=== PATIENT | male | born 1980 | race Caucasian/White ===

== ENCOUNTER 2021-02-21 09:20 | Emergency (ER) | payer OTHER, SELFPAY ==
[2021-02-21 09:24] VITALS: BP 155/100; PULSE 89; RESP 14; TEMP 37.2; O2SAT 100
--- NOTE | 2021-02-21 09:56 | ED.LOWEXIN ---
HPI - Extremity Injury (Lower) General Chief Complaint: Extremity Injury, Lower Stated Complaint: Pain in left Ankle and Leg Time Seen by Provider: 02/21/21 09:56 Source: patient Mode of arrival: ambulatory History of Present Illness HPI Narrative: left ankle pain no injury. paint to back of left ankle. patient feels he has pulled something in the back of his ankle. no swelling no edema no bruising no deformity noted. MD complaint: ankle injury Related Data Allergies Allergy/AdvReac Type Severity Reaction Status Date / Time No Known Allergies Allergy Unverified 11/11/18 10:43 Review of Systems Review of Systems: CONSTITUTIONAL: Denies fever, chills, or sweats. EYES: Denies visual changes, redness, or discharge. ENT: Denies rhinorrhea, congestion, sore throat, or otalgia. CARDIOVASCULAR: Denies chest pain, palpitations, or edema. RESPIRATORY: Denies cough or dyspnea. GASTROINTESTINAL: Denies abdominal pain, nausea, vomiting, or diarrhea. GENITOURINARY: Denies dysuria or hematuria. SKIN: Denies rash or itching. MUSCULOSKELETAL: Denies back pain, joint pain, or myalgia. NEUROLOGIC: Denies headache, numbness, or weakness. PSYCHIATRIC: Denies anxiety or depression. [facility] Past Medical History Medical History (Updated 02/21/21 @ 10:03 by KARTHIKEYAN Krause) HLD (hyperlipidemia) Lumbar spondylosis Family History Family History Mother Family history of gastrointestinal disorder Patient's mother is in good health Father , July 2020 Patient's father is in good health Social History Social History Social History: Patient drinks 1 cup of caffeine daily, energy drinks occasionally and exercises 5 days per week. 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 Gender identity (if verbalized by the patient): Male Comments At time of signature, agree with nursing past medical, surgical, social and family history. There is no relevant family history pertinent to the presenting complaint Exam Narrative: GENERAL: Well-appearing, well-nourished, and in no acute distress. HEAD: Normocephalic, atraumatic. EYES: PERRLA and EOMI. ENT: Nares clear, no rhinorrhea or epistaxis. Mucous membranes moist. NECK: Supple. CHEST: Clear to auscultation. No respiratory distress. HEART: Regular rate and rhythm. No murmur heard. Normal peripheral pulses. ABDOMEN: Soft, nontender, nondistended, normal active bowel sounds. EXTREMITIES: Normal range of motion. No edema.SKIN INTACT. NORMAL DP PULSE, NORMAL CAP REFILL. NORMAL SENSATION. Lower extremity: RIGHT HIP EXAM - SKIN INTACT. NO BRUISING, REDNESS OR SWELLING. NO INGUINAL MASSES OR LYMPHADENOPATHY. GENERALIZED FEMUR AND HIP TENDERNESS. PATIENT HOLDING HIP IN EXTERNAL ROTATION WITH SLIGHT FLEXION OF KNEE. NO BUTTOCK OR SI JOINT TENDERNESS. ROM LIMITED DUE TO PAIN. NORMAL FEMORAL PULSES. BACK EXAM - NO VERTEBRAL POINT SPECIFIC TENDERNESS OR STEP OFFS. NORMAL ROM OF BACK. NORMAL FLEXION AND EXTENSION OF BACK. NO CVA TENDERNESS. LEG EXAM - NO CALF OR ANKLE SWELLING, DISCOLORATION. NORMAL FOOT SENSATION AND CAP REFILL. NORMAL DP PULSE. . SKIN: Warm, dry, no rash. NEURO: No focal deficits. Alert and oriented x3. Talha Coma Scale Eye Opening: Spontaneous 4 Axson Coma Scale Motor: Obeys Commands 6 Axson Coma Scale Verbal: Oriented 5 Talha Coma Scale Total 15 Course Vital Signs Vital signs: Vital Signs Temperature 37.2 C 02/21/21 09:24 Pulse Rate 89 02/21/21 09:24 Respiratory Rate 14 02/21/21 09:24 Blood Pressure 155/100 H 02/21/21 09:24 Pulse Oximetry 10
== END 2021-02-21 10:07 | disposition home or self-care (01) ==
PROVIDERS: Emergency Provider Nurse Practitioner Family; PCP Emergency Medicine
DX: M76.62 Achilles tendinitis, left leg (principal); E78.5 Hyperlipidemia, unspecified; M47.816 Spondylosis without myelopathy or radiculopathy, lumbar region; Z87.891 Personal history of nicotine dependence
CPT/HCPCS: 99212; G0463

== ENCOUNTER 2021-04-23 09:10 | Emergency (ER) | payer OTHER, SELFPAY ==
--- NOTE | 2021-04-23 09:17 | ED.EAR ---
HPI - Ear Problem General Chief complaint: Ear Stated complaint: Ear Pain Time Seen by Provider: 04/23/21 09:10 Source: patient and RN notes reviewed History of Present Illness HPI Narrative: Patient is a 40-year-old male who presents the urgent care with complaints of bilateral ear pain. Patient states her right ear has been clogged for approximately 4 days and he has been using [id number] drops, Q-tips, water and some type of ear syringe press cleaner from [employer] . Patient denies of any upper respiratory complaints. Denies of fever, chills, nausea, vomiting. No other complaints. No acute distress noted. Patient aware of plan of care. Some parts of this dictation were generated by voice recognition software and may contain typographical and/or grammatical inaccuracies. Related Data Allergies Allergy/AdvReac Type Severity Reaction Status Date / Time No Known Allergies Allergy Verified 04/23/21 09:25 Review of Systems Review of Systems: CONSTITUTIONAL: Denies fever, chills, or sweats. EYES: Denies visual changes, redness, or discharge. ENT: Denies rhinorrhea, congestion, sore throat. Reports of bilateral otalgia and decreased hearing from the right CARDIOVASCULAR: Denies chest pain, palpitations, or edema. RESPIRATORY: Denies cough or dyspnea. GASTROINTESTINAL: Denies abdominal pain, nausea, vomiting, or diarrhea. GENITOURINARY: Denies dysuria or hematuria. SKIN: Denies rash or itching. MUSCULOSKELETAL: Denies back pain, joint pain, or myalgia. NEUROLOGIC: Denies headache, numbness, or weakness. All other systems reviewed are negative, except as documented in HPI. [facility] Past Medical History Medical History (Updated 04/23/21 @ 09:40 by KARTHIKEYAN Leyva) HLD (hyperlipidemia) Lumbar spondylosis Family History Family History Mother Family history of gastrointestinal disorder Patient's mother is in good health Father , July 2020 Patient's father is in good health Social History Social History Social History: Patient drinks 1 cup of caffeine daily, energy drinks occasionally and exercises 5 days per week. 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 Gender identity (if verbalized by the patient): Male Sexual Orientation (if Verbalized by the Patient): Straight or Heterosexual Comments At the time of my signature, I reviewed and agree with the nursing past medical, surgical, social, and family history. There is no relevant family history pertinent to the patient complaint. Exam Narrative: GENERAL: This is a well-nourished, well-developed patient, in no apparent distress. HEAD: normocephalic, atraumatic. EYES: PERRL. Sclera clear/white. Vision is grossly intact. EARS: External ears normal, left auditory canal clear and without drainage, mild edema and erythema noted to the right auditory canal with drainage, right TM injected/cloudy, unable to visualize left TM due to cerumen impaction. NOSE: External nose normal with no obvious nasal discharge, nares without redness, no rhinorrhea. THROAT: Mucous membranes moist NECK: Neck supple CARDIOVASCULAR: Regular rate and rhythm without murmurs, gallops, or rubs. RESPIRATORY: Clear to auscultation. Breath sounds equal bilaterally. No wheezes, rales, or rhonchi. SKIN: warm, intact with no suspicious lesions or rash, good texture and turgor. NEURO: awake, alert, and oriented to person, place and time. There were no obvious focal neurologic abnormalities. EXTREMITIES: No clubbing, cyanosis, or edema. Course Vital Signs Vital signs: Vital Signs Temperature
[2021-04-23 09:25] VITALS: BP 178/111; PULSE 92; RESP 16; TEMP 37.3; O2SAT 100
== END 2021-04-23 09:51 | disposition home or self-care (01) ==
PROVIDERS: Emergency Provider Nurse Practitioner Family; PCP Emergency Medicine
DX: H60.91 Unspecified otitis externa, right ear (principal); H66.91 Otitis media, unspecified, right ear; H61.22 Impacted cerumen, left ear; E78.5 Hyperlipidemia, unspecified; M47.816 Spondylosis without myelopathy or radiculopathy, lumbar region; Z87.891 Personal history of nicotine dependence
CPT/HCPCS: 69210; 99213; G0463

== ENCOUNTER 2022-11-02 08:27 | Emergency (ER) | payer OTHER, SELFPAY ==
[2022-11-02 08:31] VITALS: BP 172/96; PULSE 95; RESP 16; TEMP 36.8; O2SAT 99
--- NOTE | 2022-11-02 08:38 | ED.NECK ---
HPI - Neck Pain/Injury General Chief Complaint: Neck Pain/Injury Stated Complaint: neck pain Time Seen by Provider: 11/02/22 08:45 Source: patient and RN notes reviewed Mode of arrival: ambulatory Limitations: no limitations History of Present Illness HPI Narrative: 42-year-old male presents with concern for pain in between his neck and his shoulder on the right side. Reports pain started about 3 days ago gradually after he did some moving at his grandma's house. Reports he also lifts things at work. He denies any direct injury or trauma. He denies any weakness, numbness, tingling in his hands or fingers. Reports it hurts to rotate his neck to the right. He denies any midline cervical pain or tenderness. He reports he has been taking ibuprofen. Reports he has missed work MD complaint: neck pain Related Data Allergies Allergy/AdvReac Type Severity Reaction Status Date / Time No Known Allergies Allergy Verified 11/02/22 08:36 Review of Systems Review of Systems: CONSTITUTIONAL: Denies malaise, chills, sweats, or fever. CARDIOVASCULAR: Denies chest pain, palpitations, or edema. RESPIRATORY: Denies cough or dyspnea. SKIN: Denies rash or itching. MUSCULOSKELETAL: Reports right-sided pain between the neck and shoulder NEUROLOGIC: Denies numbness, weakness, or headache. All systems reviewed & are unremarkable except as noted in HPI and below PMFSH Past Medical History Medical History Chronic left-sided low back pain with left-sided sciatica Fatigue HLD (hyperlipidemia) Left buttock pain Lumbar back pain with radiculopathy affecting left lower extremity Lumbar spondylosis Numbness of left foot Other chronic pain Family History Family History Mother Family history of gastrointestinal disorder Patient's mother is in good health Father , July 2020 Patient's father is in good health Social History Social History Social History: Patient drinks 1 cup of caffeine daily, energy drinks occasionally and exercises 5 days per week. 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 Gender identity (if verbalized by the patient): Male Sexual Orientation (if Verbalized by the Patient): Straight or Heterosexual Comments At time of signature, agree with nursing past medical, surgical, social and family history. There is no relevant family history pertinent to the presenting complaint Exam Narrative: GENERAL: Well-appearing, well-nourished, and in no acute distress. HEAD: Normocephalic, atraumatic. EYES: PERRLA and EOMI. NECK: Supple. No lymphadenopathy. CHEST: Clear to auscultation. No respiratory distress. HEART: Regular rate and rhythm. Distal pulses palpable and equal, cap refill <3 seconds MUSCULOSKELETAL: Normal range of motion and strength in all extremities; 5/5 strength with hip flexion and extension, dorsiflexion and extension, knee flexion and extension, plantar flexion and extension, upper extremity flexion, extension, adduction, abduction. Normal sensation in dermatomal distributions with sensitivity to light touch and pain. No midline neck tenderness to palpation. No paraspinal tenderness. Transfers from sitting to standing. SKIN: Warm, dry, no rash. No ecchymosis, erythema, open wounds to back. NEURO: No focal deficits. Alert and oriented x3. Normal gait. PSYCH: Normal mood and affect Course Course Emergency Course: Patient is aware of diagnosis, understands and agrees to treatment plan.
== END 2022-11-02 08:57 | disposition home or self-care (01) ==
PROVIDERS: Emergency Provider Nurse Practitioner; PCP Emergency Medicine
DX: S46.811A Strain of other muscles, fascia and tendons at shoulder and upper arm level, right arm, initial encounter (principal); X58.XXXA Exposure to other specified factors, initial encounter; E78.5 Hyperlipidemia, unspecified; M47.816 Spondylosis without myelopathy or radiculopathy, lumbar region; Z87.891 Personal history of nicotine dependence
CPT/HCPCS: 99213; G0463

== ENCOUNTER 2023-10-17 10:21 | Emergency (ER) | payer OTHER, SELFPAY ==
[2023-10-17 10:28] VITALS: BP 159/98; PULSE 91; RESP 20; TEMP 37.6; O2SAT 100
--- NOTE | 2023-10-17 10:32 | ED.GENADULT ---
HPI - General Adult General Chief complaint: Back Pain/Injury Stated complaint: Back pain Source: patient, RN notes reviewed and old records reviewed Mode of arrival: ambulatory Limitations: no limitations History of Present Illness HPI narrative: 43-year-old male patient presents to [facility] with complaint of lower back pain. Patient states has chronic back pain had back surgery in the past. Patient states started a new job on Saturday and had to sit for 8 hours then had to stand for another 8 hours causing back to flare. Related Data Home Medications Medication Instructions Recorded Confirmed bupropion HCl 150 mg 24 hr tablet, 150 mg PO DAILY 10/17/23 10/17/23 extended release losartan 50 mg tablet 50 mg PO DAILY 10/17/23 10/17/23 Allergies Allergy/AdvReac Type Severity Reaction Status Date / Time No Known Allergies Allergy Verified 09/06/23 10:34 Review of Systems Constitutional: Constitutional: Reports no additional constitutional complaints, Denies body ache(s), Denies chills, Denies fatigue, Denies fever(s) and Denies headache(s) Eyes: Eyes: Reports no additional eye complaints and Denies blurry vision ENT: Reports system reviewed and no additional complaints, except as documented, Denies vertigo, Denies dizziness, Denies ear discharge, Denies otalgia, Denies facial pain, Denies headache(s), Denies nasal congestion, Denies nasal discharge, Denies sinus pain, Denies sinus pressure and Denies sore throat Cardiovascular: Cardiovascular: Reports no additional cardiovascular complaints, Denies chest pain, Denies chest pain at rest, Denies rapid heart rate and Denies dyspnea Respiratory: Respiratory: Reports no additional respiratory complaints, Denies chest congestion, Denies cough, Denies pain on inspiration, Denies pain with cough and Denies dyspnea Gastrointestinal: Gastrointestinal: Denies abdominal pain, Denies diarrhea, Denies nausea and Denies vomiting Musculoskeletal: Musculoskeletal: Reports back pain Integumentary/Breasts: Skin/Breast: Denies rash Neurologic: Reports system reviewed and no additional complaints, except as documented, Denies vertigo, Denies dizziness and Denies headache(s) Endocrine: Endocrine: Denies fatigue PMFSH Past Medical History Medical History Acute eczema Chronic left-sided low back pain with left-sided sciatica Dental abscess Eczema Fatigue HLD (hyperlipidemia) Left buttock pain Lumbar back pain with radiculopathy affecting left lower extremity Lumbar spondylosis Numbness of left foot Other chronic pain Status post administration of all doses of COVID-19 vaccine series Very high blood pressure determined by examination Surgical History Surgical History H/O lumbar discectomy Family History Family History Mother Family history of gastrointestinal disorder Patient's mother is in good health Father , July 2020 Patient's father is in good health Social History Social History (Updated 09/06/23 @ 10:22 by Shelby Santoro MA) Social History: Patient drinks 1 cup of caffeine daily, energy drinks occasionally and exercises 5 days per week. Smoking status: Former smoker Second hand tobacco smoke exposure: No Smoking end date: 07/08/15 Alcohol intake: never Substance use: never Substance use type: does not use Do You Feel Safe in your Home?: Yes Lack of Transportation: No Lack of Food: Never True Current Housing: I Have Housing Concerned About Future Housing: No Difficulty Paying Gas/Electric Bills: No Difficulty Paying for Meds: No Currently Unemployed: No Education: High School Diploma/GED Difficulty w/ Childcare or Family Care: No Living arrangements: alone Additional living arrangements comments: Patient is divor
== END 2023-10-17 10:50 | disposition home or self-care (01) ==
PROVIDERS: Emergency Provider Registered Nurse; PCP Emergency Medicine
DX: G89.29 Other chronic pain (principal); M54.41 Lumbago with sciatica, right side; E78.5 Hyperlipidemia, unspecified; I10 Essential (primary) hypertension; Z87.891 Personal history of nicotine dependence
CPT/HCPCS: 99213; G0463

== ENCOUNTER 2024-07-03 08:06 | Emergency (ER) | payer OTHER, SELFPAY ==
[2024-07-03 08:12] VITALS: BP 145/96; PULSE 77; RESP 16; TEMP 37.2; O2SAT 99
--- NOTE | 2024-07-03 08:17 | ED.NAVMDI ---
HPI - Nausea/Vomiting/Diarrhea General Chief complaint: Nausea/Vomiting/Diarrhea Stated complaint: Vomiting Time Seen by Provider: 07/03/24 08:17 Source: patient and RN notes reviewed Mode of arrival: ambulatory Limitations: no limitations History of Present Illness HPI Narrative: 43-year-old male presented for complaint of nausea and vomiting. Onset 2 days. Endorses about 5 episodes of vomiting yesterday and 2 this morning. States he last ate on 07/01. Denies any associated abdominal pain, diarrhea, hematemesis, fevers, body aches or sore throat. Not taking anything for symptoms. Denies known sick contacts. Related Data Allergies Allergy/AdvReac Type Severity Reaction Status Date / Time No Known Allergies Allergy Verified 07/03/24 08:23 Review of Systems Review of Systems: CONSTITUTIONAL: Denies body aches, fever, chills ENT: Denies rhinorrhea, congestion CARDIOVASCULAR: Denies chest pain, palpitations, or edema. RESPIRATORY: Denies cough or dyspnea. GASTROINTESTINAL: Endorses nausea, vomiting. Denies abdominal pain, diarrhea, hematochezia, melena, hematemesis GENITOURINARY: Denies dysuria, hematuria, or CVA tenderness. SKIN: Denies rash MUSCULOSKELETAL: Denies back pain, joint pain, or myalgia. NEUROLOGIC: Denies headache, numbness, tingling, or weakness. All systems reviewed & are unremarkable except as noted in HPI and below PMFSH Past Medical History Medical History Status post administration of all doses of COVID-19 vaccine series Eczema Chronic left-sided low back pain with left-sided sciatica Fatigue Left buttock pain Lumbar back pain with radiculopathy affecting left lower extremity Numbness of left foot Other chronic pain Dental abscess Very high blood pressure determined by examination Acute eczema Lumbar spondylosis HLD (hyperlipidemia) Surgical History Surgical History H/O lumbar discectomy Family History Family History Mother Family history of gastrointestinal disorder Patient's mother is in good health Father , July 2020 Patient's father is in good health Social History Social History (Reviewed 07/03/24 @ 08:25 by DMITRI Martin Social History: Patient drinks 1 cup of caffeine daily, energy drinks occasionally and exercises 5 days per week. Smoking status: Former smoker Second hand tobacco smoke exposure: No Smoking end date: 07/08/15 Alcohol intake: never Substance use: never Substance use type: does not use Do You Feel Safe in your Home?: Yes Lack of Transportation: No Lack of Food: Sometimes True Current Housing: I Have Housing Concerned About Future Housing: No Difficulty Paying Gas/Electric Bills: No Difficulty Paying for Meds: No Currently Unemployed: No Education: High School Diploma/GED Difficulty w/ Childcare or Family Care: No Living arrangements: alone Additional living arrangements comments: Patient is Occupation/Education: occupation 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 Gender identity (if verbalized by the patient): Male Sexual Orientation (if Verbalized by the Patient): Straight or Heterosexual Comments At time of signature, I have reviewed and agree with nursing past medical, surgical, social and family history unless otherwise noted. Please see nursing chart for further information. There is no relevant family history pertinent to the presenting complaint Exam Narrative: GENERAL: mildly ill-appearing, and in no acute distress. EYES: EOMI. Conjunctivae normal. ENT: Mucous membranes pink and moist. CHEST: No respiratory distress. Clear to auscultation. HEART: Regular rate and rhythm. No murmur appreciated. Normal peripheral pulses. ABDOMEN: abd soft, nondistended, normal active bowel sounds. Nontender abdomen, No guarding, rebound tenderness, asymmetry EXTREMITIES: Normal range of motion. No edema. SKIN: Warm, dry, no rash. Capillary refill normal. Normal skin turgor. NEURO: No focal deficits. Alert and oriented x3. PSYCH: Normal affect. Course Course Emergency Course: Patient is aware of diagnosis, understands and agrees to treatment plan. Anticipatory guidance given. Patient agrees to follow-up as directed and is aware of reasons to seek care at the emergency department. Portions of this record may have been created with voice recognition software Level of Care: Express Care Visit Vital Signs Vital signs: Vital Signs Temperature 98.9 F 07/03/24 08:12 Pulse Rate 77 07/03/24 08:12 Respiratory Rate 16 07/03/24 08:12 Blood Pressure 145/96 H 07/03/24 08:12 Pulse Oximetry 99 07/03/24 08:12 Oxygen Delivery Room Air 07/03/24 08:12 Temperature 98.9 F 07/03/24 08:12 Pulse Rate 77 07/03/24 08:12 Respiratory Rate 16 07/03/24 08:12 Blood Pressure 145/96 H 07/03/24 08:12 Pulse Oximetry 99 07/03/24 08:12 Oxygen Delivery Room Air 07/03/24 08:12 MDM - Nausea/Vomiting/Diarrhea MDM Narrative Medical decision making narrative: Discussed physical exam findings, neg flu and covid results. Advised supportive measures, Rx zofran, and signs/symptoms to go to the ER. Pt is appropriate for outpt treatment and f/u. Differential Diagnosis Differential diagnosis: Likely food poisoning, gastroenteritis, drug-induced nausea and vomiting and dehydration Discharge Plan Discharge Clinical Impression: Nausea & vomiting Patient Disposition: Home, Self-Care Condition: Stable Instructions: Antibiotic Form, Acute Nausea and Vomiting (ED) Additional Instructions: Stay hydrated. Take small sips of fluid containing electrolytes frequently. Clear liquids (broth, jello, tea, sprite, pedialyte) as tolerated Slowly advance to Oak foods (bananas, rice, applesauce, toast, crackers) Avoid fatty, greasy, fried or spicy foods. Limit dairy until symptoms are improved. You should go to the hospital if you experience persistent nausea and vomiting that does not resolve and does not allow you to tolerate any food or fluids, fevers, increasing abdominal pain, persistent diarrhea, or for any other concerns. Follow up with primary care provider in 3 days. Patient Language: Cameroonian Prescriptions: New ondansetron 4 mg tablet,disintegrating 4 mg PO Q8H PRN (Reason: nausea and vomiting) Qty: 10 0RF No Action losartan 50 mg tablet 50 mg PO DAILY Qty: 90 2RF cholecalciferol (vitamin D3) 1,250 mcg (50,000 unit) capsule 1,250 mcg PO WEEKLY Qty: 12 2RF bupropion HCl 150 mg tablet extended release 24 hr See Rx Instructions .ROUTE .COMPLEX Qty: 90 2RF Dose Instruction: TAKE 1 TABLET BY MOUTH DAILY Rx Instructions: TAKE 1 TABLET BY MOUTH DAILY alprazolam [Xanax] 1 mg tablet 1 mg PO BID PRN (Reason: anxiety) Qty: 60 1RF Follow-up/Referrals: Salinas Mari MD [Primary Care Provider] - Stand Alone Forms: Work/School Release IP Time of Disposition: 08:49
[2024-07-03 08:43] LABS: EDCOVIDSCREEN Negative (Negative); EDINFLUASCREEN Negative (Negative); EDINFLUBSCREEN Negative (Negative)
--- OUTSIDE RECORDS SUMMARY | 2024-07-10 15:35 | XMS_ITS | Encounter Summary ---
Author Organization [facility] Address [address] [place] [address] Care Team Providers Care Fur Drummer Name Role Phone Salinas Mari MD Primary Care Provider [phone] Reason for Visit * Reason Comments Establish Care Encounter Details Date Type Department Care Team (Latest Contact Info) Description 04/06/2019 9:15 AM CDT Office Visit [facility] Neurosurgery [address] [place] [address] Rui Desouza MD [address] [place] [id number] Lumbar radiculopathy (Primary Dx) Social History Tobacco Use Types Packs/Day Years Used Date Smoking Tobacco: Former Cigarettes Q uit: 2018 Smokeless Tobacco: Never Alcohol Use Standard Drinks/Week Comments No 0 (1 standard drink = 0.6 oz pur e alcohol) Sex and Gender Information Value Date Recorded Sex Assigned at Not on file Gender Identity Not on file Sexual Orientation Not on file documented as of this encounter Last Filed Vital Signs Vital Sign Reading Time Taken Comments Blood Pressure 145/105 04/06/2019 9:28 AM CDT Pulse 89 04/06/2019 9:28 AM CDT Temperature 37 ??C (98.6 ??F) 04/06/2019 9:28 AM CDT Respiratory Rate 20 04/06/2019 9:28 AM CDT Oxygen Saturation 98% 04/06/2019 9:28 AM CDT Inhaled Oxygen Concentration - - Weight 110.7 kg (244 lb) 04/06/2019 9:28 AM CDT Height 182.9 cm (6') 04/06/2019 9:28 AM CDT Body Mass Index 33.09 04/06/2019 9:28 AM CDT documented in this encounter Patient Instructions * Patient Instructions* Subha Corcoran APRN-CNP - 04/06/2019 9:33 AM CDT Wound care - you may shower, no scrubbing or soaking - pat dry Increase activity as tolerated - no bending, twisting, or lifting anything greater than 10 pounds Follow up in 4 weeks no imaging documented in this encounter Progress Notes * Rui Desouza MD - 04/06/2019 8:54 PM CDT NAME: SHANE MCKEON : 1980 AGE: 38 PROVIDER: Rui Desouza MD SEX: M DATE: 04/06/2019 I had the pleasure of seeing Mr. Mckeon in the neurosurgery office today. HISTORY OF PRESENT ILLNESS: Mr. Mckeon is a very pleasant 38-year-old gentleman who has history of left leg pain radiating to the left S1 dermatome that was going on for approximately 8 months. He had an MRI that demonstrated a left L5-S1 disk protrusion with significant compression upon left S1 nerve root at the lateral recess. Therefore, the patient was ultimately submitted to a left L5-S1 microdiscectomy by me on 03/19/2019. The patient presented significant improvement of the left leg pain after the surgical procedure. He still reports some mild residual pain in the posterior portion ofhis thigh and calf, which is only intermittent in nature. No concerns with the wound. Past Medical History: Diagnosis Date ??? Anxiety ??? Difficult intubation 03/19/2019 Anterior airway and short TM distance, easy with Glidescope 4 ??? Lumbar pain Past Surgical History: Procedure Laterality Date ??? Hernia Repair ??? Lumbar Diskectomy Left 03/19/2019 Left; LUMBAR FIVE TO SACRAL ONE MICRODISCECTOMY No family history on file. Social History Socioeconomic History ??? Marital status: Spouse name: Not on file ??? Number of children: Not on file ??? Years of education: Not on file ??? Highest education level: Not on file Occupational History ??? Not on file Social Needs ??? Financial resource strain: Not on file ??? Food insecurity: Worry: Not on file Inability: Not on file ??? Transportation needs: Medical: Not on file Non-medical: Not on file Tobacco Use ??? Smoking status: Former Smoker Last attempt to quit: 2018 Years since quittin.7 ??? Smokeless tobacco: Never Used Substance and Sexual Activity ??? Alcohol use: No ??? Drug use: No ??? Sexual activity: Not on file Lifestyle ??? Physical activity: Days per week: Not on file Minutes per session: Not on file ??? Stress: Not on file Relationships ??? Social connections: Talks on phone: Not on file Gets together: Not on file Attends mu-ism service: Not on file Active member of club or organization: Not on file Attends meetings of clubs or organizations: Not on file Relationship status: Not on file ??? Intimate partner violence: Fear of current or ex partner: Not on file Emotionally abused: Not on file Physically abused: Not on file Forced sexual activity: Not on file Other Topics Concern ??? Not on file Social History Narrative ??? Not on file Current Medications ALPRAZolam (XANAX) 0.5 MG tablet Take 0.5 mg by mouth 3 times daily as needed escitalopram (LEXAPRO) 10 MG tablet PHYSICAL EXAMINATION: The patient is comfortable and in no acute distress. The wound in the posterior lumbar region is well healed. No phlogistic signs or any signs of infection. He has full strengthin the lower limbs for all tested muscles. Reflexes are physiologic and symmetric at 1+ in the lower limbs. Negative straight leg raise test bilaterally. Sensation is normal in the lower limbs. Strength, sensation and reflexes are normal in the upper limbs. MEDICAL DECISION MAKING: I told the patient that he is experiencing a good evolution approximately 2 weeks after his left L5-S1 microdiskectomy. I recommended him to start physical therapy. As, according to the patient, his work involves a significant amount of physical exertion, I still recommend him to be out of work until the next evaluation in 4 weeks. I still recommended him to avoid submerging the incision. Thanks for allowing us to participate in care of your patient. [id number] Doc ID: [id number] Voice Job ID: [id number] documented in this encounter Plan of Treatment Not on file documented as of this encounter Visit Diagnoses Diagnosis Lumbar radiculopathy- Primary Thoracic or lumbosacral neuritis or radiculitis, unspecified documented in this encounter Care Teams Fur Drummer Relationship Specialty Start Date End Date Salinas Mari MD [facility] [place] [id number] PCP - General Internal Medicine 03/02/19 documented as of this encounter
--- OUTSIDE RECORDS SUMMARY | 2024-07-10 15:35 | XMS_ITS | Encounter Summary ---
Author Organization [facility] Address [address] [facility] [place] [address] Care Team Providers Care Desizing Machine Operator Name Role Phone Salinas Mari MD Primary Care Provider [phone] Encounter Details Date Type Department Care Team (Latest Contact Info) Description 03/02/2019 10:00 AM CDT - 03/02/2019 11:59 PM T Hospital [facility] [address] [place] [address] Rui Dseouza MD [address] [place] [address] [place] [address] Discharge Disposition: Home or Self Care Social History Tobacco Use Types Packs/Day Years Used Date Smoking Tobacco: Former Cigarettes Q uit: 2018 Smokeless Tobacco: Never Alcohol Use Standard Drinks/Week Comments No 0 (1 standard drink = 0.6 oz pur e alcohol) Sex and Gender Information Value Date Recorded Sex Assigned at Not on file Gender Identity Not on file Sexual Orientation Not on file documented as of this encounter Medications at Time of Discharge Medication Sig Dispensed Refills Start Date End Date ALPRAZolam (XANAX) 0.5 MG tablet Take 0.5 mg by mouth 3 times daily as needed 01/28/2019 HYDROcodone-acetaminophe n (NORCO) 5-325 MG tablet Take 1 tablet by mouth every 8 hours as needed for Pain 15 tablet 03/19/2019 03/24/2019 HYDROcodone-acetaminophe n (NORCO) 5-325 MG tablet Take 1 tablet by mouth every 8 hours as needed for Pain 03/19/2019 methocarbamol (ROBAXIN) 500 MG tablet Take 1 tablet by mouth every 6 hours as needed for Muscle Spasms 28 tablet 03/19/2019 03/26/2019 methocarbamol (ROBAXIN) 500 MG tablet Take 500 mg by mouth every 8 hours as needed for Muscle Spasms 03/12/2019 03/19/2019 documented as of this encounter Plan of Treatment Not on file documented as of this encounter Procedures Procedure Name Priority Date/Time Associated Diagnosis Comments PT PTT PANEL Pre-Op 03/02/2019 10:28 AM CDT Pre-op testing CBC W AUTO DIFFERENTIAL STAT 03/02/2019 10:28 AM CDT Pre-op testing documented in this encounter Results * PT PTT PANEL (03/02/2019 10:28 AM CDT) PT 9.5 9.5 - 11.6 sec 03/02/2019 11:21 AM CDT [facility] INR 0.9 0.9 - 1.1 03/02/2019 11:21 AM CDT [facility] PTT 24.8 21.0 - 32.0 sec 03/02/2019 11:21 AM CDT [facility] Blood BLOOD SPECIMEN / Unknown Venipuncture / Unknown 03/02/2019 10:28 AM CDT 03/02/2019 10:54 AM CDT Narrative [facility] - 03/02/2019 11:21 AM CDT Conventional Warfarin Anticoagulant Therapy: INR Reference Range: ??2.0-3.0 Intensive Warfarin Anticoagulant Therapy: INR Reference Range: ? 2.5-3.5 Heparin Therapeutic Range for PTT: 50.5 - 74.3 seconds. Rui Desouza MD LAB - COAGULATIO N ORDERABLES [facility] [address] [place] [address] * (ABNORMAL) CBC W AUTO DIFFERENTIAL (03/02/2019 10:28 AM CDT) WBC 7.6 4.4 - 10.7 x10E9/L 03/02/2019 11:12 AM [facility] WBC Corrected 03/02/2019 11:12 AM [facility] RBC 4.60 3.80 - 5.40 x10E12/L 03/02/2019 11:12 AM [facility] Hemoglobin 13.7 12.0 - 17.6 gm/dL 03/02/2019 11:12 AM [facility] Hematocrit 43.4 35.2 - 51.7 % 03/02/2019 11:12 AM [facility] MCV 94.3 80.7 - 98.3 fl 03/02/2019 11:12 AM [facility] MCH 29.8 26.7 - 34.0 pg 03/02/2019 11:12 AM [facility] MCHC 31.6 30.8 - 35.9 gm/dL 03/02/2019 11:12 AM [facility] Platelet Count 178 153 - 416 x10E9/L 03/02/2019 11:12 AM [facility] RDW-CV 11.9(L) 12.1 - 14.9 % 03/02/2019 11:12 AM [facility] MPV 11.0 9.4 - 12.9 fl 03/02/2019 11:12 AM [facility] Neutrophils % 56.8 44.0 - 73.0 % 03/02/2019 11:12 AM [facility] Lymphocytes % 34.1 20.0 - 43.0 % 03/02/2019 11:12 AM [facility] Monocytes % 7.4 5.0 - 13.0 % 03/02/2019 11:12 AM [facility] Eosinophils % 1.2 0.0 - 6.0 % 03/02/2019 11:12 AM [facility] Basophils % 0.4 0.0 - 2.0 % 03/02/2019 11:12 AM [facility] Immature Granulocytes 0.1 0 - 1 % 03/02/2019 11:12 AM [facility] Neutrophil Absolute 4.30 2.01 - 7.14 x10E9/L 03/02/2019 11:12 AM [facility] Lymphocytes Absolute 2.58 1.07 - 3.94 x10E9/L 03/02/2019 11:12 AM CDT [facility] Monocytes Absolute 0.56 0.26 - 1.07 x10E9/L 03/02/2019 11:12 AM CDT [facility] Eosinophils Absolute 0.09 0 - 0.47 x10E9/L 03/02/2019 11:12 AM CDT [facility] Basophils Absolute 0.03 0 - 0.08 x10E9/L 03/02/2019 11:12 AM CDT [facility] Immature Granulocytes Absolute 0.01 0.00 - 0.06 x10E9/L 03/02/2019 11:12 AM CDT [facility] nRBC Auto 0 /100 WBC 03/02/2019 11:12 AM CDT [facility] Blood BLOOD SPECIMEN / Unknown Venipuncture / Unknown 03/02/2019 10:28 AM CDT 03/02/2019 10:54 AM CDT Rui Desouza MD LAB - HEMATOLOGY ORDERABLES Performing Organization Address [facility] Co de Phone Number [facility] [address] [place] [address] documented in this encounter Visit Diagnoses Diagnosis Pre-op testing- Primary Preoperative examination, unspecified documented in this encounter Care Teams Desizing Machine Operator Relationship Specialty Start Date End Date Salinas Mari MD [address] [address] PCP - General Internal Medicine 03/02/19 documented as of this encounter
--- OUTSIDE RECORDS SUMMARY | 2024-07-10 15:35 | XMS_ITS | Encounter Summary ---
Author Organization [facility] Address [address] [facility] [place] [address] Care Team Providers Care Cylinder Head Assembler Name Role Phone Salinas Mari MD Primary Care Provider [phone] Encounter Details Date Type Department Care Team (Late st Contact Info) Description 07/15/2019 Orders Only [facility] [address] [place] [address] Arianne Salas RN Lumbar radiculopathy ; Status post lumbar spine surgery for decompression of spinal cord; Back pain, unspecified back location, unspecified back pain laterality, unspecified chronicity Social History Tobacco Use Types Packs/Day Years Used Date Smoking Tobacco: Former Cigarettes Q uit: 2018 Smokeless Tobacco: Never Alcohol Use Standard Drinks/Week Comments No 0 (1 standard drink = 0.6 oz pur e alcohol) Sex and Gender Information Value Date Recorded Sex Assigned at Not on file Gender Identity Not on file Sexual Orientation Not on file documented as of this encounter Plan of Treatment Not on file documented as of this encounter Visit Diagnoses Diagnosis Lumbar radiculopathy- Primary Thoracic or lumbosacral neuritis or radiculitis, unspecified Status post lumbar spine surgery for decompression of spinal cord Back pain, unspecified back location, unspecified back pain laterality, unspecified chronicity documented in this encounter Care Teams Cylinder Head Assembler Relationship Specialty Start Date End Date Salinas Mari MD [address] [place] [address] PCP - General Internal Medicine 03/02/19 documented as of this encounter
--- OUTSIDE RECORDS SUMMARY | 2024-07-10 15:35 | XMS_ITS | Encounter Summary ---
Author Organization [facility] Address [address] [facility] [place] [address] Care Team Providers Care Manager Business Continuity Name Role Phone Unavailable Primary Care Provider Unavailabl e Encounter Details Date Type Department Care Team (Late st Contact Info) Description 01/19/2019 Orders Only [facility] [address] [place] [address] Rui Desouza MD [address] [place] [address] Back pain, unspecified back location, unspecified back pain laterality, unspecified chronicity Social History Tobacco Use Types Packs/Day Years Used Date Smoking Tobacco: Never Assessed Sex and Gender Information Value Date Recorded Sex Assigned at Not on file Gender Identity Not on file Sexual Orientation Not on file documented as of this encounter Plan of Treatment Not on file documented as of this encounter Visit Diagnoses Diagnosis Back pain, unspecified back location, unspecified back pain laterality, unspecified chronicity- Primary documented in this encounter
--- OUTSIDE RECORDS SUMMARY | 2024-07-10 15:35 | XMS_ITS | Referral Summary ---
Author Organization [facility] Address [address] [facility] [place] [address] Care Team Providers Care Cad Technician Name Role Phone Salinas Mari MD Primary Care Provider [phone] Source Comments [facility],non-owned Affiliates and Associated Physician Practices is amultiple site organization consisting of ambulatory clinics and hospital sitesin [place], [place], [place] and [place]. This disclosure is being madepursuant to the Care Everywhere program and may not contain all information available regarding this patient. Last updated 18.[facility] Allergies No known active allergies Medications * Be aware that medications may not be up to date on this document. Alwaysverify current medications with the patient. Medication Sig Dispensed Refills Start Date End Date Status ALPRAZolam (XANAX) 0.5 MG tablet Take 0.5 mg by mouth 3 times daily as needed 01/28/2019 Active escitalopram (LEXAPRO) 10 MG tablet 03/03/2019 Active Active Problems Problem Noted Date Diagnosed Date Acute lumbar radiculopathy Social History Tobacco Use Types Packs/Day Years Used Date Smoking Tobacco: Former Cigarettes Q uit: 2018 Smokeless Tobacco: Never Alcohol Use Standard Drinks/Week Comments No 0 (1 standard drink = 0.6 oz pur e alcohol) Sex and Gender Information Value Date Recorded Sex Assigned at Not on file Gender Identity Not on file Sexual Orientation Not on file Last Filed Vital Signs Vital Sign Reading Time Taken Comments Blood Pressure 146/103 08/10/2019 9:53 AM FREELANCE ART DIRECTOR Pulse 100 08/10/2019 9:53 AM FREELANCE ART DIRECTOR Temperature 37 ??C (98.6 ??F) 08/10/2019 9:53 AM FREELANCE ART DIRECTOR Respiratory Rate 20 04/06/2019 9:28 AM CDT Oxygen Saturation 96% 08/10/2019 9:53 AM FREELANCE ART DIRECTOR Inhaled Oxygen Concentration - - Weight 106.6 kg (235 lb) 08/10/2019 9:53 AM FREELANCE ART DIRECTOR Height 182.9 cm (6') 08/10/2019 9:53 AM FREELANCE ART DIRECTOR Body Mass Index 31.87 08/10/2019 9:53 AM FREELANCE ART DIRECTOR Plan of Treatment Not on file Care Teams Cad Technician Relationship Specialty Start Date End Date Salinas Mari MD [address] [place] [address] [address] [place], [place] [phone] PCP - General Internal Medicine 03/02/19
--- OUTSIDE RECORDS SUMMARY | 2024-07-10 15:35 | XMS_ITS | Encounter Summary ---
Author Organization [facility] Address [address] [facility] [address] Care Team Providers Care Apartment House Manager Name Role Phone Salinas Mari MD Primary Care Provider [phone] Reason for Visit * Reason Comments Follow-up Post microdiskectomy Encounter Details Date Type Department Care Team (Latest Contact Info) Description 08/10/2019 9:45 AM AOC PLANS INTELLIGENCE OFFICER Office Visit [facility] Neurosurgery [address] [place] [address], [address] [place] [address] Rui Desouza MD [address] [place] [address] [place] [address] Lumbar radiculopathy (Primary Dx) Social History Tobacco [...] Comments Blood Pressure 146/103 08/10/2019 9:53 AM AOC PLANS INTELLIGENCE OFFICER Pulse 100 08/10/2019 9:53 AM AOC PLANS INTELLIGENCE OFFICER Temperature 37 ??C (98.6 ??F) 08/10/2019 9:53 AM AOC PLANS INTELLIGENCE OFFICER Respiratory Rate - - Oxygen Saturation 96% 08/10/2019 9:53 AM AOC PLANS INTELLIGENCE OFFICER Inhaled Oxygen Concentration - - Weight 106.6 kg (235 lb) 08/10/2019 9:53 AM AOC PLANS INTELLIGENCE OFFICER Height 182.9 cm (6') 08/10/2019 9:53 AM AOC PLANS INTELLIGENCE OFFICER Body Mass Index 31.87 08/10/2019 9:53 AM AOC PLANS INTELLIGENCE OFFICER documented in this encounter Progress Notes * Rui Desouza MD - 08/10/2019 2:19 PM CST NAME: SHANE MCKEON : 1980 AGE: 39 PROVIDER: Rui Desouza MD SEX: M DATE: 08/10/2019 I had the pleasure of Mr. Mckeon in the neurosurgery office today. HISTORY OF PRESENT ILLNESS: Mr. Mckeon is a very pleasant 39-year-old gentleman with past historyof left S1 radiculopathy. He had an MRI that demonstrated left L5-S1 disk protrusion with significant compression upon the left S1 nerve root at the lateral recess. Therefore, the patient was ultimately submitted to a left L5-S1 microdiscectomy by me on 03/19/2019. The patient experienced complete resolution of the left leg pain. He reports no major back pain. He has already finished physical therapy, and he is back to his normal level of physical activities. Past Medical History: Diagnosis Date ??? Anxiety [...] Last attempt to quit: 2018 Years since quittin.0 ??? Smokeless tobacco: Never Used Substance and Sexual Activity ??? Alcohol use: No ??? Drug use: No ??? Sexual activity: Not on file Lifestyle ??? Physical activity: Days per week: Not on file Minutes per session: Not on file ??? Stress: Not on file Relationships ??? Social connections: Talks on phone: Not on file Gets together: Not on file Attends judaism service: Not on file Active member of [...] No phlogistic signs or any signs of infection on palpation of his lower lumbar region. Strength, sensation and reflexes are normal in the upper and lower limbs. MEDICAL DECISION MAKING: I told the patient he is experiencing a very good evolution approximately 5 months after the surgical intervention to his lumbar spine. I told him that as he is completely asymptomatic, there is no further need of neurosurgical follow-up unless the patient presents with newsymptoms. Thank you for allowing us to participate in care of your patient. The patient is very satisfied with his treatment. [email or web address] Doc ID: [id number] Voice Job ID: [id number] cc: , PCP PLANS INTELLIGENCE OFFICER documented in this encounter Plan of Treatment Not on file documented as of this encounter Visit Diagnoses Diagnosis Lumbar radiculopathy- Primary Thoracic or lumbosacral neuritis or radiculitis, unspecified documented in this encounter Care Teams Apartment House Manager Relationship Specialty Start Date End Date Salinas Mari MD [address] [place] [address] PCP - General Internal Medicine 03/02/19 documented as of this encounter
--- OUTSIDE RECORDS SUMMARY | 2024-07-10 15:35 | XMS_ITS | Encounter Summary ---
Author Organization [facility] Address [address] [facility] [place] [address] Care Team Providers Care Middleware Solutions Architect Name Role Phone Unavailable Primary Care Provider Unavailabl e Encounter Details Date Type Department Care Team (Late st Contact Info) Description 02/12/2019 Orders Only [facility] [address] [place] [address] Subha Corcoran, CASTING AND PASTING SUPERVISOR-SAMPLE TESTER [address] [place] [address] Lumbar radiculopathy Social History Tobacco Use Types Packs/Day [...]
--- OUTSIDE RECORDS SUMMARY | 2024-07-10 15:35 | XMS_ITS | Encounter Summary ---
Author Organization [facility] Address [address] [facility] [place] [address] Care Team Providers Care Wine Cellar Worker Name Role Phone Unavailable Primary Care Provider Unavailabl e Reason for Visit * Reason Onset Date Comments Reminder Call 02/06/2019 clld to confiem appr NA left detailled msg Encounter Details Date Type Department Care Team (Late st Contact Info) Description 02/06/2019 Telephone [facility] [address] [place] [address] Rui Desouza MD [address] [place] [address] Reminder Call (clld to confiem appr NA left detailled msg ) Social History Tobacco Use Types Packs/Day Years Used Date Smoking Tobacco: Never Assessed Sex and Gender Information Value Date Recorded Sex Assigned at Not on file Gender Identity Not on file Sexual Orientation Not on file documented as of this encounter Miscellaneous Notes * Telephone Encounter - Gia Prado - 02/06/2019 10:16 AM CDT clld to confiem appr NA left detailled msg documented in this encounter Plan of Treatment Not on file documented as of this encounter Visit Diagnoses Not on filedocumented in this encounter
--- OUTSIDE RECORDS SUMMARY | 2024-07-10 15:35 | XMS_ITS | Encounter Summary ---
Author Organization [facility] Address [address] [place] [address]. [place], [place] [address] [place] [address] Care Team Providers Care Industrial Gas Fitter Name Role Phone Unavailable Primary Care Provider Unavailabl e Encounter Details Date Type Department Care Team (Late st Contact Info) Description 03/15/2006 Abstract [facility] [place], [place] [id number] Zan Rodriguez MD [address] [address] Social History Tobacco Use Types Packs/Day Years Used Date Smoking Tobacco: Never Assessed Sex and Gender Information Value Date Recorded Sex Assigned at Not on file Legal Sex Male 4:44 PM CDT Gender Identity Not on file Sexual Orientation Not on file documented as of this encounter Plan of Treatment Not on file documented as of this encounter Visit Diagnoses Not on filedocumented in this encounter
--- OUTSIDE RECORDS SUMMARY | 2024-07-10 15:35 | XMS_ITS | Encounter Summary ---
Author Organization [facility] Address [address] [place] [address] Care Team Providers Care Quarryman Name Role Phone Salinas Mari MD Primary Care Provider + [phone] Reason for Visit * Auth/Cert Specialty Diagnoses / Procedures Referred By Sheryl t Referred To Contact Diagnoses Diagnosis unknown Diagnosis unknown [R69] Procedures DISCECTOMY LUMBAR MICROSCOPIC Referral ID Status Reason Start Date Expiration Date Visits Re quested Visits Authorized [id number] 1 1 Encounter Details Date Type Department Care Team (Late st Contact Info) Description 03/19/2019 10:02 AM CDT Anesthesia Event [facility] [address] [place] [address] Salinas Khanna MD [address] [place] [address] Wilman Figueroa, BURRER MACHINE-FEED PREPARATION OPERATOR [address] [place] [id number] Anesthesia Record Procedure Summary Procedure Name Responsible Anesthesiologist Anesthesia Start Time Anesthesia Stop Time LUMBAR FIVE TO SACRAL ONE MICRODISCECTOMY (Left: Spine Lumbar) Salinas Khanna MD 03/19/19 1002 03/19/19 1153 Events Date Time Event Comment 03/19/2019 1002 An Start 1002 An Start Data 1004 PT Reassessment 1006 Induction 1014 An Intubation 1039 Timeout Anesthesia part icipated in timeout at the time documented in the record by nursing. 1040 Incision 1146 Extubation 1149 an stop data 1149 Electnc Sig 1149 ANPTO2 1153 An Stop Meds Name Total midazolam 2 mg/2mL injection 2 mg fentaNYL 250 mcg/5mL injection 250 mcg lidocaine 2% injection (20 mg/ml) 100 mg propofol 200mg/20mL injection 270 mg rocuronium 50mg/5mL injection 85 mg Phenylephrine HCl 10 MG/ML 300 mcg dexamethasone 4 mg/ml injection 8 mg ondansetron 4 mg/2mL injection 4 mg ketorolac 30 mg/ml injection 30 mg sugammadex 200 mg/2 mL injection 200 mg ceFAZolin (ANCEF) 2,000 mg in 50 ml IVPB 2 g HYDROmorphone 2 mg/ml injection 0.5 mg lactated ringers infusion 1,200 mL * Agents Name Insp. N2O Exp. Sevoflurane Exp. N2O O2 Flow - Auxiliary O2 Air Insp. Sevoflurane * Blood No blood administrations on file. Lines, Drains, and Airways Type Details Placement Removal Peripheral IV Date: 03/19/19; Time : 0854; Orientation: Left; Placed By: Ministerio Morel RN; Tolerance: Well 03/19/19 0854 by Micheline Niño RN 03/19/19 1417 by Rozina Kohli RN ETT Date: 03/19/19; Time : 1007; Placed By: DANII Bradley; Vent: easy mask; Induction: Standard IV; Blade Type: Video; Blade Size: 4; Laryngoscopy View: Grade 1 (full cords); Intubation Adjuncts: Stylet, Video Laryngoscope, Cricoid Pressure; Tube: Endotracheal Tube; Placement: Oral; Tube Type: Cuffed-inflated; Tube Size(mm): 8 MM; Depth of Insertion: 23 CM; Measured From: teeth; Attempts: 2; Cuff Infated: Air; Cuff Vol(mL): 7 mL; Verified By: Direct visualization, Bilateral breath sounds, Chest Auscultation, CO2 Monitor; Reason: anterior larynx, other (comments) 03/19/19 1007 by Wilman Figueroa APRN-CRNA 03/19/19 1147 by Wilman Figueroa APRN-CRNA Procedural Site (Incision) 03/19/19; 1041; Lower, Medial; Back; 03/19/19; 2019 03/19/19 1041 by Mono Acevedo RN 03/19/19 2019 by Antione Auto Release documented in this encounter Social History Tobacco Use Types Packs/Day Years Used Date Smoking Tobacco: Former Cigarettes Q uit: 2018 Smokeless Tobacco: Never Alcohol Use Standard Drinks/Week Comments No 0 (1 standard drink = 0.6 oz pur e alcohol) Sex and Gender Information Value Date Recorded Sex Assigned at Not on file Gender Identity Not on file Sexual Orientation Not on file documented as of this encounter Progress Notes * Salinas Khanna MD - 03/19/2019 12:04 PM CDT ANESTHESIA POSTOP EVALUATION NOTE Procedure: LUMBAR FIVE TO SACRAL ONE MICRODISCECTOMY (Left Spine Lumbar) Shane Hazel is a 38 year old male Patient Vitals for the past 6 hrs: BP Temp Pulse Resp SpO2 Pain Rating Score #1 03/19/19 0849 -- 98.7 ??F (37.1 ??C) 106 20 99 % 0 03/19/19 0902 (!) 151/104 -- -- -- -- -- 03/19/19 1151 -- 97 ??F (36.1 ??C) -- -- -- 0 03/19/19 1155 -- -- -- -- -- 0 Anesthesia Type: general Pre-op Diagnosis Codes: * Diagnosis unknown [R69] Mental Status: awake and sufficiently recovered from acute administration of anesthesia to participate in the evaluation Neuro Status: No numbess, tingling or visual disturbances Respiratory Function: natural Cardiac Function: stable Postop Pain: acceptable to the patient Postop Hydration: adequate Postop Nausea: none Assessment: no apparent anesthetic complications Patient Disposition: Release from Anesthesia Care Non Reportable Improvement Section (otherwise blank): * Salinas Khanna MD - 03/19/2019 9:19 AM CDT ANESTHESIA PREOPERATIVE EVALUATION NOTE Procedure: LUMBAR FIVE TO SACRAL ONE MICRODISCECTOMY (Left Spine Lumbar) NPO status: Since Midnight;*Except Oral meds with H2O;NO Tobacco Since Midnight (03/19/2019 8:51 AM) Vitals: Patient Vitals for the past 6 hrs: BP Temp Pulse Resp SpO2 Pain Rating Score #1 03/19/19 0902 (!) 151/104 -- -- -- -- -- 03/19/19 0849 -- 98.7 ??F (37.1 ??C) 106 20 99 % 0 ANESTHESIA PRE-EVALUATION NOTE Physical Exam: Orientation X3 Airway/Mallampati Score: I Mouth Opening Distance: 3.5 fingerwidths Neck ROM: full TM Distance: > 3 FB Teeth: normal Heart: regular rate rhythm Lungs: normal Abdomen Exam: obese Review of Systems: History of anesthetic complications: No Diagnostic Tests: Lab(s) reviewed: Yes. ANESTHESIA PLAN ASA Score: 2 NPO Status: No liquids within 2 hours, No solids since midnight and No solids for 6 hours Anesthesia Plan: general ETT Planned Induction: intravenous Planned Postop Destination: PACU Anesthetic plan was discussed with: patient Anesthetic Plan discussion was: Consented The patient's procedural Anesthetic Plan was discussed with the FEED PREPARATION OPERATOR. BMI, Height, Weight Tobacco History Estimated body mass index is 33.13 kg/m?? as calculated from the following: Height as of this encounter: 1.829 m (6'). Weight as of this encounter: 110.8 kg (244 lb 4.8 oz). Social History Tobacco Use Smoking Status Former Smoker ??? Last attempt to quit: 2017 ??? Years since quittin.6 Smokeless Tobacco Never Used Alcohol History Drug History Social History Substance and Sexual Activity Alcohol Use No Social History Substance and Sexual Activity Drug Use No Outpatient Medications: Inpatient Medications: Outpatient Medications Marked as Taking for the 03/19/19 encounter (Hospital Encounter) Medication Sig Last Dose ??? ALPRAZolam Take 0.5 mg by mouth 3 times daily as needed 03/19/2019 at 0600 Current Facility-Administered Medications Medication Dose Last Dose ??? ceFAZolin 2 g ??? lactated ringers ??? lidocaine 0.2 mL 0.2 mL at 03/19/19 0853 Allergies: No Known Allergies Relevant Problems No relevant active problems Problem List: There are no active problems to display for this patient. Medical History: Past Medical History: Diagnosis Date ??? Anxiety ??? Lumbar pain Surgical History: Past Surgical History: Procedure Laterality Date ??? Hernia Repair Lab Results: Recent Labs Component Name 03/02/19 1028 WBC 7.6 HGB 13.7 HCT 43.4 PLTCOUNT 178 INR 0.9 PTT 24.8 documented in this encounter Procedure Notes * Wilman Figueroa APRN-CRNA - 03/19/2019 10:36 AM CDTAssociated Order(s): ETT Placement Endotracheal Tube Placement: Patient Location: OR. Intubation Event Date/Time: 03/19/2019 10:07 AM Procedure: intubation (55517). Procedure Section: Sedation: under general anesthesia. Indications for Airway Management: anesthesia Procedure pretreatments used? No Induction: standard IV Patient Position: supine Mask Ventilation: easy. Blade Type: Video (first attempt with MAC 4 unsuccessful) Blade Size: 4 Laryngoscopy View: grade 1 (full cords) (Grade 3 view with MAC 4 blade) Intubation Adjuncts: stylet, cricoid pressure and video laryngoscope Tube: endotracheal tube Placement: oral Tube type: cuff - inflated Tube Size (MM): 8 Depth of Insertion (CM): 23 Measured From: teeth Cuff volume (mL): 7 Cuff Inflated With: air Number of Attempts: 2. Placement Verified By: direct visualization, bilateral breath sounds, CO2 monitor and chest auscultation Tube secured with: adhesive tape. Difficult Airway? Yes. Technique: video laryngoscope Reason: anterior larynx and other - please comment (short TM distance) Procedure Start Time: 03/19/2019 10:07 AM. Procedure End Time: 03/19/2019 10:14 AM. Procedure Total Time: 7 minutes. Staff Section Anesthesia Provider: Wilman Figueroa APRN-CRNA, Performed the procedure documented in this encounter Miscellaneous Notes * Anesthesia Transfer of Care - Wilman Figueroa APRN-CRNA - 03/19/2019 11:55 AM CDT ANESTHESIA TRANSFER OF CARE NOTE Today's Date: 03/19/2019 Date of : 1980 Patient: Shane Hazel Procedure(s): LUMBAR FIVE TO SACRAL ONE MICRODISCECTOMY Surgeon(s): Primary: Rui Desouza MD Preop Diagnosis: Pre-op Diagnois: * Diagnosis unknown [R69] Pre-op Meds (From admission, onward) Start Stop Status Route Frequency Ordered 03/19/19 0845 acetaminophen (TYLENOL) tablet 1,000 mg 03/19 0853 Completed PO ONCE 03/19/19 0844 03/19/19 0845 ceFAZolin (ANCEF) 2,000 mg in 50 ml IVPB 03/19 1024 Completed IV PRE-OP ONCE 03/19/19 0843 03/19/19 1149 fentaNYL (PF) (SUBLIMAZE) injection 50 mcg -- Verified IV EVERY 3 MIN PRN 03/19/19 1149 03/19/19 1149 HYDROmorphone (DILAUDID) injection 0.2 mg -- Verified IV EVERY 15 MIN PRN 03/19/19 1149 03/19/19 1149 HYDROmorphone (DILAUDID) injection 0.5 mg -- Verified IV EVERY 5 MIN PRN 03/19/19 1149 03/19/19 0845 lactated ringers infusion -- Verified IV PRE-OP CONTINUOUS 03/19/19 0844 03/19/19 0844 lidocaine (XYLOCAINE MPF) 1 % injection 0.2 mL -- Verified INFILTRATION PRE-OP MULTIPLE 03/19/19 0844 03/19/19 1105 morphine PF (DURAMORPH) injection 03/19 1105 Completed CONTINUOUS PRN 03/19/19 1105 03/19/19 1149 naloxone (NARCAN) injection 0.04 mg -- Verified IV POST-OP MULTIPLE 03/19/19 1149 Post-op Diagnosis: * Diagnosis unknown [R69] . No Known Allergies Vitals: Patient Vitals for the past 3 hrs: BP 03/19/19 0902 (!) 151/104 Lines, Drains, and Airways Type Details Placement Removal Peripheral IV Date: 03/19/19; Time: 0854; Orientation: Left; Location: Forearm; Placed by: Ministerio Morel RN; Cath Gauge: 20 Gauge; Brand: Webb; Local: Injectable; Tolerance: Well 03/19/19 0854 by Micheline Niño, RN ETT 03/19/19; 1007 (created via procedure documentation); Wilman Figueroa APRN-FEED PREPARATION OPERATOR; easy mask; Standard IV; Video (first attempt with MAC 4 unsuccessful); 4; Grade 1 (full cords) (Grade 3 view with MAC 4 blade); Stylet, Video Laryngoscope, Cricoid Pressure; Endotracheal Tube; Oral; Cuffed-inflated; 8 MM; 23 CM; teeth; 2; Air; 7 mL; Direct visualization, Bilateral breath sounds, Chest Auscultation, CO2 Monitor; anterior larynx, other (comments) (short TM distance); 03/19/19; 1147 03/19/19 1007 by Wilman Figueroa APRN-CRNA 03/19/19 1147 by Wilman Figueroa APRN-CRNA Intraprocedure I/O Totals lactated ringers infusion Volume infused 1000 ml Patient Transfer Location: PACU Transport Airway: spontaneous respirations and supplemental O2 Complications: None Handoff Given? Yes Checklist or Protocol - The wolf handoff elements that must be included in the transfer of care checklist include: 1. Identification of patient. 2. Identification of responsible practitioner (PACU nurse or advanced practitioner). 3. Discussion of pertinent medical history. 4. Discussion of the surgical/procedure course (procedure, reason for surgery, procedure performed). 5. Intraoperative anesthetic management and issue/concerns. 6. Expectations/Plans for the early post-procedure period. 7. Opportunity for questions and acknowledgement of understanding of report from the receiving PACUteam. DANII Bradley documented in this encounter Plan of Treatment Not on file documented as of this encounter Procedures Procedure Name Priority Date/Time Associated Diagnosis Comments ENDOTRACHEAL TUBE NOTE Routine 03/19/2019 10:36 AM CDT documented in this encounter Results * ENDOTRACHEAL TUBE NOTE (03/19/2019 10:36 AM CDT) Narrative Wilman Figueroa APRN-CRNA - 03/19/2019 10:36 AM CDT Wilman Figueroa APRN-CRNA ? 03/19/2019 10:39 AM Endotracheal Tube Placement: ? Patient Location: OR. Intubation Event Date/Time: ??03/19/2019 10:07 AM Procedure: intubation ([id number]). Procedure Section: ?? Sedation: under general anesthesia. Indications for Airway Management: ??anesthesia Procedure pretreatments used? ??No Induction: standard IV Patient Position: ??supine Mask Ventilation: easy. Blade Type: Video (first attempt with MAC 4 unsuccessful) Blade Size: 4 Laryngoscopy View: grade 1 (full cords) (Grade 3 view with MAC 4 blade) Intubation Adjuncts: stylet, cricoid pressure and video laryngoscope Tube: endotracheal tube Placement: oral Tube type: cuff - inflated Tube Size (MM): 8 Depth of Insertion (CM): 23 Measured From: teeth Cuff volume (mL): ??7 Cuff Inflated With: air Number of Attempts: 2. Placement Verified By: direct visualization, bilateral breath sounds, CO2 monitor and chest auscultation Tube secured with: ??adhesive tape. Difficult Airway? ??Yes. ?Technique: video laryngoscope ? Reason: anterior larynx and other - please comment (short TM distance) Procedure Start Time: 03/19/2019 10:07 AM. Procedure End Time: 03/19/2019 10:14 AM. Procedure Total Time: 7 ??minutes. Staff Section ?? Anesthesia Provider: Wilman Figueroa BURRER MACHINE-FEED PREPARATION OPERATOR, Performed the procedure Salinas Khanna MD GENERAL ANESTHESIA ORDERABLES documented in this encounter Visit Diagnoses Not on filedocumented in this encounter Administered Medications Inactive Administered Medications - up to 3 most recent administrations Medication Order MAR Action Action Date Dose Rate Site ceFAZolin (ANCEF) 2,000 mg in 50 ml IVPB 2,000 mg (2 g), at 100 mL/hr, Intravenous, PRE-OP ONCE, 1 dose, On Hanh 03/19/19 at 0845, Indication for anti-infective therapy: Surgical prophylaxis $ Given 03/19/2019 10:24 AM CDT 2 g dexamethasone (DECADRON) injection Intravenous, PRN, Starting on Hanh 03/19/19 at 1024, Until Hanh 03/19/19 at 1155, Anesthesia Intra-op $ Given 03/19/2019 10:24 AM CDT 8 mg fentaNYL (PF) (SUBLIMAZE) injection PRN, Starting on Hanh 03/19/19 at 1002, Until Hanh 03/19/19 at 1155, Anesthesia Intra-op $ Given 03/19/2019 10:28 AM CDT 50 mcg $ Given 03/19/2019 10:09 AM CDT 100 mcg $ Given 03/19/2019 10:02 AM CDT 100 mcg HYDROmorphone (DILAUDID) injection PRN, Starting on Hanh 03/19/19 at 1148, Until Hanh 03/19/19 at 1155, Anesthesia Intra-op $ Given 03/19/2019 11:48 AM CDT 0.5 mg ketorolac (TORADOL) injection PRN, Starting on Hanh 03/19/19 at 1135, Until Hanh 03/19/19 at 1155, Anesthesia Intra-op $ Given 03/19/2019 11:35 AM CDT 30 mg lactated ringers infusion at 20 mL/hr, Intravenous, PRE-OP CONTINUOUS, Starting on Hanh 03/19/19 at 0845, Until Hanh 03/19/19 at 1520, Pre-op $ New Bag/Syringe 03/19/2019 10:59 AM CDT $ New Bag/Syringe 03/19/2019 8:58 AM CDT 20 mL/ hr lidocaine (XYLOCAINE) 2 % injection PRN, Starting on Hanh 03/19/19 at 1006, Until Hanh 03/19/19 at 1155, Anesthesia Intra-op $ Given 03/19/2019 10:06 AM CDT 100 mg midazolam (VERSED) injection Intravenous, PRN, Starting on Hanh 03/19/19 at 1002, Until Hanh 03/19/19 at 1155, Anesthesia Intra-op $ Given 03/19/2019 10:02 AM CDT 2 mg Ondansetron HCl (ZOFRAN) injection PRN, Starting on Hanh 03/19/19 at 1135, Until Hanh 03/19/19 at 1155, Anesthesia Intra-op $ Given 03/19/2019 11:35 AM CDT 4 mg Phenylephrine HCl (KISHA-SYNEPHRINE) injection Intravenous, PRN, Starting on Hanh 03/19/19 at 1053, Until Hanh 03/19/19 at 1155, Anesthesia Intra-op $ Given 03/19/2019 11:16 AM CDT 100 mcg $ Given 03/19/2019 11:03 AM CDT 100 mcg $ Given 03/19/2019 10:53 AM CDT 100 mcg propofol (DIPRIVAN) injection PRN, Starting on Hanh 03/19/19 at 1006, Until Hanh 03/19/19 at 1155, Anesthesia Intra-op $ Given 03/19/2019 11:05 AM CDT 70 mg $ Given 03/19/2019 10:06 AM CDT 200 mg rocuronium (ZEMURON) injection Intravenous, PRN, Starting on Hanh 03/19/19 at 1006, Until Hanh 03/19/19 at 1155, Anesthesia Intra-op $ Given 03/19/2019 11:29 AM CDT 5 mg $ Given 03/19/2019 11:07 AM CDT 30 mg $ Given 03/19/2019 10:06 AM CDT 50 mg sugammadex (BRIDION) injection PRN, Starting on Hanh 03/19/19 at 1135, Until Hanh 03/19/19 at 1155, Anesthesia Intra-op $ Given 03/19/2019 11:35 AM CDT 200 mg documented in this encounter Care Teams Quarryman Relationship Specialty Start Date End Date Salinas Mari MD [facility], [id number] [address] PCP - General Internal Medicine 03/02/19 documented as of this encounter
--- OUTSIDE RECORDS SUMMARY | 2024-07-10 15:35 | XMS_ITS | Patient Health Summary ---
Author Organization [facility] Address [address] [place] [address] Care Team Providers Care Solution Designer Name Role Phone Salinas Mari MD Primary Care Provider + [phone] Note from [facility],non-owned Affiliates and Associated Physician Practices is amultiple site organization consisting of ambulatory clinics and hospital sitesin [place], [place], [place] and [place]. This disclosure is being madepursuant to the Care Everywhere program and may not contain all information available regarding this patient. Last updated 18.[facility] Allergies No known active allergies Medications * Be aware that medications may not be up to date on this document. Alwaysverify current medications with the patient. * ALPRAZolam (XANAX) 0.5 MG tablet(Started 01/28/2019) Take 0.5 mg by mouth 3 times daily as needed * escitalopram (LEXAPRO) 10 MG tablet(Started 03/03/2019) Active Problems Problem Noted Date Diagnosed Date [...] Comments Blood Pressure 146/103 08/10/2019 9:53 AM DETECTIVE PRECINCT Pulse 100 08/10/2019 9:53 AM DETECTIVE PRECINCT Temperature 37 ??C (98.6 ??F) 08/10/2019 9:53 AM DETECTIVE PRECINCT Respiratory Rate 20 04/06/2019 9:28 AM CDT Oxygen Saturation 96% 08/10/2019 9:53 AM DETECTIVE PRECINCT Inhaled Oxygen Concentration - - Weight 106.6 kg (235 lb) 08/10/2019 9:53 AM DETECTIVE PRECINCT Height 182.9 cm (6') 08/10/2019 9:53 AM DETECTIVE PRECINCT Body Mass Index 31.87 08/10/2019 9:53 AM DETECTIVE PRECINCT Procedures * CARDIAC RHYTHM STRIP ORDER(Performed 03/24/2019) * FL JUICE SURGERY(Performed 03/19/2019) Performed for Pain * ENDOTRACHEAL TUBE NOTE(Performed 03/19/2019) * DISCECTOMY LUMBAR MICROSCOPIC(Performed 03/19/2019) Performed for Diagnosis unknown * PT PTT PANEL(Performed 03/02/2019) Performed for Pre-op testing * CBC W AUTO DIFFERENTIAL(Performed 03/02/2019) Performed for Pre-op testing Results * CARDIAC RHYTHM STRIP ORDER (03/24/2019 6:48 PM CDT) Narrative 03/24/2019 6:48 PM CDT Ordered by an unspecified provider. Scanned Document CARDIAC SERVICES ORD ERABLES * FL JUICE SURGERY (03/19/2019 11:45 AM CDT) Rui Desouza MD FLUOROSCOPY RILEY CAN Performing Organization Address City/State/[facility] Co de Phone Number [facility] [address] [place] [address] * ENDOTRACHEAL TUBE NOTE (03/19/2019 10:36 AM CDT) Narrative Wilman Figueroa APRN-CRNA - 03/19/2019 10:36 AM CDT Wilman Figueroa APRN-CRNA ? 03/19/2019 10:39 AM Endotracheal Tube Placement: ? Patient Location: OR. Intubation Event Date/Time: ??03/19/2019 10:07 AM Procedure: intubation (85968). Procedure Section: ?? Sedation: under general anesthesia. [...] Staff Section ?? Anesthesia Provider: Wilman Figueroa APRN-MANNY, Performed the procedure Salinas Khanna MD GENERAL ANESTHESIA ORDERABLES * PT PTT PANEL (03/02/2019 10:28 AM CDT) PT 9.5 9.5 - 11.6 sec 03/02/2019 11:21 AM CDT [facility] INR 0.9 0.9 - 1.1 03/02/2019 11:21 AM CDT [facility] PTT 24.8 21.0 - 32.0 sec 03/02/2019 11:21 AM CDT [facility] Blood BLOOD SPECIMEN / Unknown Venipuncture / Unknown 03/02/2019 10:28 AM CDT 03/02/2019 10:54 AM CDT Narrative [facility] - 03/02/2019 11:21 AM CDT Conventional Warfarin Anticoagulant Therapy: INR Reference Range: ??2.0-3.0 Intensive Warfarin Anticoagulant Therapy: INR Reference Range: ? 2.5-3.5 Heparin Therapeutic Range for PTT: 50.5 - 74.3 seconds. Rui Desouza MD LAB - COAGULATIO N ORDERABLES [facility] [address] [place] [address] * (ABNORMAL) CBC W AUTO DIFFERENTIAL (03/02/2019 10:28 AM CDT) [facility] Signature WBC 7.6 4.4 - 10.7 x10E9/L 03/02/2019 11:12 AM CDT [facility] WBC Corrected [facility]2019 [facility] RBC 4.60 3.80 - 5.40 x10E12/L 03/02/2019 11:12 [facility] Hemoglobin 13.7 12.0 - 17.6 gm/dL 03/02/2019 11:12 AM [facility] Hematocrit 43.4 35.2 - 51.7 % 03/02/2019 11:12 [facility] MCV 94.3 80.7 - 98.3 fl 03/02/2019 11:12 AM CDT [facility] MCH 29.8 26.7 - 34.0 pg 03/02/2019 11:12 AM CDT [facility] MCHC 31.6 30.8 - 35.9 gm/dL 03/02/2019 11:12 AM [facility] Platelet Count 178 153 - 416 x10E9/L 03/02/2019 11:12 AM [facility] RDW-CV 11.9(L) 12.1 - 14.9 % 03/02/2019 11:12 AM [facility] MPV 11.0 9.4 - 12.9 fl 03/02/2019 11:12 AM [facility] Neutrophils % 56.8 44.0 - 73.0 % 03/02/2019 11:12 AM CDT [facility] Lymphocytes % 34.1 20.0 - 43.0 % 03/02/2019 11:12 AM CDT [facility] Monocytes % 7.4 5.0 - 13.0 % 03/02/2019 11:12 AM CDT [facility] Eosinophils % 1.2 0.0 - 6.0 % 03/02/2019 11:12 AM CDT [facility] Basophils % 0.4 0.0 - 2.0 % 03/02/2019 11:12 AM CDT [facility] Immature Granulocytes 0.1 0 - 1 % 03/02/2019 11:12 [facility] Neutrophil Absolute 4.30 2.01 - 7.14 x10E9/L 03/02/2019 11:12 AM CDT [facility] Lymphocytes Absolute 2.58 1.07 - 3.94 x10E9/L 03/02/2019 11:12 AM CDT [facility] Monocytes Absolute 0.56 0.26 - 1.07 x10E9/L 03/02/2019 11:12 AM CDT [facility] Eosinophils Absolute 0.09 0 - 0.47 x10E9/L 03/02/2019 11:12 AM CDT [facility] Basophils Absolute 0.03 0 - 0.08 x10E9/L 03/02/2019 11:12 AM CDT [facility] Immature Granulocytes Absolute 0.01 0.00 - 0.06 x10E9/L 03/02/2019 11:12 AM CDT [facility] nRBC Auto 0 /100 WBC 03/02/2019 11:12 AM CDT [facility] Blood BLOOD SPECIMEN / Unknown Venipuncture / Unknown 03/02/2019 10:28 AM CDT 03/02/2019 10:54 AM CDT Rui Desouza MD LAB - HEMATOLOGY ORDERABLES Performing Organization Address City/State/[facility] Co de Phone Number [facility] [address] [place] [address] Care Teams Solution Designer Relationship Specialty Start Date End Date Salinas Mari MD [address] [address] PCP - General Internal Medicine 03/02/19
--- OUTSIDE RECORDS SUMMARY | 2024-07-10 15:35 | XMS_ITS | Encounter Summary ---
Author Organization [facility] Address [address] [facility] [place] [address] Care Team Providers Care Regional Airline Pilot Name Role Phone Unavailable Primary Care Provider Unavailabl e Reason for Visit * Reason Onset Date Comments Future Appointment 01/13/2019 Encounter Details Date Type Department Care Team (Late st Contact Info) Description 01/13/2019 Telephone [facility] [address] [place] [address] Ayo Bales Future Appointment Social History Tobacco Use Types Packs/Day Years Used Date Smoking Tobacco: Never Assessed Sex and Gender Information Value Date Recorded Sex Assigned at Not on file Gender Identity Not on file Sexual Orientation Not on file documented as of this encounter Miscellaneous Notes * Telephone Encounter - Ayo Bales - 01/13/2019 10:48 AM CDT Left voice message for patient to call office to schedule new patient appointment with Dr. Desouza. documented in this encounter Plan of Treatment Not on file documented as of this encounter Visit Diagnoses Not on filedocumented in this encounter
--- OUTSIDE RECORDS SUMMARY | 2024-07-10 15:35 | XMS_ITS | Encounter Summary ---
Author Organization [facility] Address [address] [place] [address] Care Team Providers Care Vessel Captain Name Role Phone Salinas Mari MD Primary Care Provider [phone] Reason for Visit * Reason Comments Follow-up Encounter Details Date Type Department Care Team (Latest Contact Info) Description 05/04/2019 9:45 AM CDT Office Visit [facility] Neurosurgery [address] [place] [address], [address] [place] [address] Rui Desouza MD [facility] [place] [address] Status post lumbar spine surgery for decompression of spinal cord (Primary Dx) Social History Tobacco Use Types [...] Sign Reading Time Taken Comments Blood Pressure 142/100 05/04/2019 10:18 AM CDT Pulse 99 05/04/2019 10:18 AM CDT Temperature 37.1 ??C (98.8 ??F) 05/04/2019 10:18 AM C DT Respiratory Rate - - Oxygen Saturation 99% 05/04/2019 10:18 AM CDT Inhaled Oxygen Concentration - - Weight 106.6 kg (235 lb) 05/04/2019 10:18 AM CDT Height 182.9 cm (6') 05/04/2019 10:18 AM CDT Body Mass Index 31.87 05/04/2019 10:18 AM CDT documented in this encounter Patient Instructions * Patient Instructions* Subha Corcoran APRN-CNP - 05/04/2019 10:23 AM CDT Follow up with physical therapy -script given today, you can take where ever you choose Follow up in 3 months documented in this encounter Progress Notes * Subha Corcoran APRN-CNP - 05/07/2019 6:39 PM CDT NEUROSURGERY CLINIC NOTE Chief Complaint (CC): follow up HISTORY OF PRESENT ILLNESS (HPI): hSane Hazel is a 38-year-old male who has history of left leg pain radiating to the left S1 dermatome He had an MRI that demonstrated a left L5-S1 disk protrusion with significant compression upon left S1 nerve root at the lateral recess. He was ultimately submitted to a left L5-S1 microdiscectomy on 03/19/2019. He presents today for follow up reporting complete resolution of his pre operative symptoms. Denies new numbness, tingling, weakness, no s/s of wound infection. Past Medical History: Diagnosis Date ??? Anxiety ??? Difficult intubation 03/19/2019 Anterior airway and short TM distance, easy with Glidescope 4 ??? Lumbar pain Past Surgical History: Procedure Laterality Date ??? Hernia Repair ??? Lumbar Diskectomy Left 03/19/2019 Left; LUMBAR FIVE TO SACRAL ONE MICRODISCECTOMY Current Outpatient Medications Medication ??? ALPRAZolam (XANAX) 0.5 MG tablet ??? escitalopram (LEXAPRO) 10 MG tablet No current facility-administered medications for this visit. No Known Allergies Social History Tobacco Use ??? Smoking status: Former Smoker Last attempt to quit: 2018 Years since quittin.8 ??? Smokeless tobacco: Never Used Substance Use Topics ??? Alcohol use: No No family history on file. REVIEW OF SYSTEMS Constitutional: Negative Eyes: Negative Ears, nose, mouth, throat, and face: Negative Respiratory: Negative Cardiovascular: Negative Gastrointestinal: Negative Genitourinary: Negative Hematologic/lymphatic: Negative Musculoskeletal:Negative Neurological: Negative Behavioral/Psych: Negative Endocrine: Negative PHYSICAL EXAM BP 142/100 (BP SITE: RIGHT ARM) Pulse 99 Temp 98.8 ??F (37.1 ??C) Ht 1.829 m (6') Wt 106.6 kg (235 lb) SpO2 99% BMI 31.87 kg/m2 General: no acute complaints Cardiovascular: warm, well perfused Respiratory: non-labored breathing Abdominal: S, NT, ND Integument: wound- healed well without s/s of infection Vascular: capillary refill <3 seconds Neuro: alert, oriented x 3 (name, place date), sensation intact Deltoid Bicep Tricep Medical Reimbursement Specialist Wrist Ext Finger ext Hip Flexor Quad Hamstring Tib Ant Gastroc EHL Right 5 5 5 5 5 5 5 5 5 5 5 5 Left 5 5 5 5 5 5 5 5 5 5 5 5 Biceps triceps Patellar Achilles Right 2+ 2+ 2+ 2+ Left 2+ 2+ 2+ 2+ DTRs 2+/symmetric No pérez's, toes downgoing Normal gait RADIOLOGY No new imaging Assessment/Plan: Shane Hazel is a 38 year old male 2 months s/p L5-S1 microdiscectomy. He was advised to continue physical therapy, and follow up with Dr Desouza in 3 months Subha Corcoran, MARKET DEVELOPMENT ANALYST-AIDS COUNSELOR 05/07/2019 6:39 PM documented in this encounter Plan of Treatment Not on file documented as of this encounter Visit Diagnoses Diagnosis Status post lumbar spine surgery for decompression of spinal cord- Primary documented in this encounter Care Teams Vessel Captain Relationship Specialty Start Date End Date Salinas Mari MD [address] [place] [address] PCP - General Internal Medicine 03/02/19 documented as of this encounter
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
--- OUTSIDE RECORDS SUMMARY | 2024-07-10 15:35 | XMS_ITS | Clinical Summary ---
Author Organization [facility] [employer] Address [address] [facility] [place] [address] Care Team Providers Care Supervisor Fish Bait Processing Name Role Phone Salinas Mari MD Primary Care Provider [phone] Source Comments [facility] [employer]non-owned Affiliates and Associated Physician Practices is amultiple site organization consisting of ambulatory clinics and hospital sitesin [place], [place], [place] and [place]. This disclosure is being madepursuant to the Care Everywhere program and may not contain all information available regarding this patient. Last updated 18.[facility] [employer] Allergies No known active allergies Medications * [...] Comments Blood Pressure 146/103 08/10/2019 9:53 AM BUSINESS TRAINER Pulse 100 08/10/2019 9:53 AM BUSINESS TRAINER Temperature 37 ??C (98.6 ??F) 08/10/2019 9:53 AM BUSINESS TRAINER Respiratory Rate 20 04/06/2019 9:28 AM CDT Oxygen Saturation 96% 08/10/2019 9:53 AM BUSINESS TRAINER Inhaled Oxygen Concentration - - Weight 106.6 kg (235 lb) 08/10/2019 9:53 AM BUSINESS TRAINER Height 182.9 cm (6') 08/10/2019 9:53 AM BUSINESS TRAINER Body Mass Index 31.87 08/10/2019 9:53 AM BUSINESS TRAINER Plan of Treatment Health Maintenance Due Date Last Done Comments LIPID TESTING 1980 HIV SCREENING 1996 HEPATITIS C SCREENING 07/17/1999 DTAP/TDAP/TD VACCINES (1 - Tdap) 2000 HEPATITIS B VACCINE (1 of 3 - 19+ 3-dose series) 2000 DEPRESSION SCREENING 07/08/2023 COVID-19 VACCINE (1 - 2023-2 5 season) 2024 INFLUENZA VACCINE (#1) 2024 ZOSTER VACCINE (1 of 2) 2031 HIB VACCINE Aged Out No longer eligi ble based on patient's age to complete this topic HPV VACCINE Aged Out No longer eligi ble based on patient's age to complete this topic MENINGOCOCCAL VACCINE Aged Out No raphael rowena eligible based on patient's age to complete this topic PNEUMOCOCCAL VACCINE Aged Out No long er eligible based on patient's age to complete this topic Care Teams Supervisor Fish Bait Processing Relationship Specialty Start Date End Date Salinas Mari MD [address] [place] [address] [address] [place] [address] PCP - General Internal Medicine 03/02/19
--- OUTSIDE RECORDS SUMMARY | 2024-07-10 15:35 | XMS_ITS | Clinical Summary ---
Author Organization [facility] Address [address] [place] [address]. [place], [place] [address] [place] [address] Care Team Providers Care Street Sprinkler Name Role Phone Unavailable Primary Care Provider Unavailabl e Social History Tobacco Use Types Packs/Day Years Used Date Smoking Tobacco: Never Assessed Sex and Gender Information Value Date Recorded Sex Assigned at Not on file Legal Sex Male 4:44 PM CDT Gender Identity Not on file Sexual Orientation Not on file Plan of Treatment Health Maintenance Due Date Last Done Comments Annual Physical 1984 Hepatitis C 1999 DTaP, Tdap and Td Vaccines ( 1 - Tdap) 2000 Hepatitis B Vaccines (1 of 3 - 19+ 3-dose series) 2000 COVID-19 Vaccine (2023-2 5 season) 2024 Influenza Adult (#1) 2024 HPV Vaccines Aged Out No longer eligi ble based on patient's age to complete this topic Meningococcal Vaccine Aged Out No raphael rowena eligible based on patient's age to complete this topic Pneumococcal Vaccine: Pediat rics (0 to 5 Years) and At-Risk Patients (6 to 64 Years) Aged Out No longer eligible b ased on patient's age to complete this topic RSV Immunizations Under 20 Months Aged Out No longer eligible based on patient's age to complete this topic Insurance [employer]
--- OUTSIDE RECORDS SUMMARY | 2024-07-10 15:35 | XMS_ITS | Encounter Summary ---
Author Organization [facility] Address [address] [place] [address] Care Team Providers Care Clinical Courier Name Role Phone Salinas Mari MD Primary Care Provider [phone] Reason for Visit * Auth/Cert Specialty Diagnoses / Procedures Referred By Contac t Referred To Contact Diagnoses Diagnosis unknown Diagnosis unknown [R69] Procedures DISCECTOMY LUMBAR MICROSCOPIC Referral ID Status Reason Start Date Expiration Date Visits Re quested Visits Authorized [id number] 1 1 Encounter Details Date Type Department Care Team (Late st Contact Info) Description 03/19/2019 10:17 AM CDT - 03/19/2019 12:59 PM CDT Surgery [facility] [address] [place] [address] Cielo Alexander MD [address] [place] [address] [place] [address] LUMBAR FIVE TO SACRAL ONE MICRODISCECTOMY Surgery Details Date/Time Status Location OR Service Patient Class Case Class Case Type Trauma Case? 03/19/2019 10:17 AM Posted [facility] MAIN OR OR 15 Neurosurgery Surgery Day Care Over Night Elective > 5 days Panel 1 Procedure LRB Anes Op Region Wound Class Comments LUMBAR FIVE TO SACRAL ONE MICRODISCECTOMY Left General Spine Lumbar Clean Surgeon Surgeon Role Service Panel Cielo Alexander MD Primary Neurosurgery 1 Special Needs NEEDS HAZARDOUS WASTE MATERIAL TECHNICIAN, REESE TABLE, C-ARM, LEICA MICROSCOPE documented in this encounter Social History Tobacco [...] Sign Reading Time Taken Comments Blood Pressure 125/91 03/19/2019 12:49 PM CDT Pulse 78 03/19/2019 12:49 PM CDT Temperature 36.4 ??C (97.5 ??F) 03/19/2019 1 2:49 PM CDT Respiratory Rate 16 03/19/2019 12:4 9 PM CDT Oxygen Saturation 99% 03/19/2019 12: 49 PM CDT Inhaled Oxygen Concentration - - [...] he presents with clear symptoms of left [id number] in the setting of a left L5-S1 [...] Alexander MD - 03/19/2019 12:41 PM CDT [facility] Operative Report PATIENT NAME: SHANE MCKEON MR#: [id number] DATE OF : 1980 CSN: [id number] DATE OF ADMISSION: 03/19/2019 ROOM#: [facility] INTRAOP DATE OF OPERATION: 03/19/2019 PREOPERATIVE DIAGNOSIS: Left L5-S1 disk herniation. POSTOPERATIVE DIAGNOSIS: Left L5-S1 disk herniation. PROCEDURE: Left L5-S1 microdiskectomy. SURGEON: Cielo Alexander MD. ENROLLED AGENT: SHASHA Ellsworth. ANESTHESIA: General anesthesia. INTRAOPERATIVE BLOOD [...] ALEXANDER MD DICTATED FOR: JESSICA/SIN JOB ID: [id number] Operative Report documented in this encounter Plan of Treatment Not on file documented as of this encounter Procedures Procedure Name Priority Date/Time Associated Diagnosis Comments CARDIAC RHYTHM STRIP ORDER 03/24/2019 6:48 PM CDT FL JUICE SURGERY Routine 03/19/2019 11:45 AM CDT [...] FL JUICE SURGERY (03/19/2019 11:45 AM CDT) Cielo Alexander MD FLUOROSCOPY RILEY CAN Performing Organization Address City/State/[facility] Co de Phone Number [facility] [address] [place] [address] documented in this encounter Visit Diagnoses Diagnosis Pain Generalized pain Acute lumbar radiculopathy Thoracic or lumbosacral neuritis or radiculitis, unspecified Diagnosis unknown Other unknown and unspecified cause of morbidity or mortality documented in this encounter Administered Medications Inactive Administered Medications - up to 3 most recent administrations Medication Order MAR Action Action Date Dose Rate Site acetaminophen (TYLENOL) tablet 1,000 mg 1,000 mg, Oral, ONCE, 1 dose, On Hanh 03/19/19 at 0845, Pre-op $ Given 03/19/2019 8:53 AM CDT 1,000 mg bupivacaine liposome (EXPAREL) 1.3 % injection PRN, Starting on Hanh 03/19/19 at 1105, Until Hanh 03/19/19 at 1151, Intra-op $ Given 03/19/2019 11:05 AM CDT 20 mL Operative Site fentaNYL (PF) (SUBLIMAZE) injection 50 mcg 50 [...] Given 03/19/2019 8:53 AM CDT 0.2 mL methylPREDNISolone acetate (DEPO-Medrol) injection PRN, Starting on Hanh 03/19/19 at 1105, Until Hanh 03/19/19 at 1151, Intra-op $ Given 03/19/2019 11:05 AM CDT 40 mg Operative Site morphine PF (DURAMORPH) injection CONTINUOUS PRN, Starting on Hanh 03/19/19 at 1105, Until Hanh 03/19/19 at 1105, Intra-op $ New Bag/Syringe 03/19/2019 11:05 AM CDT 1 mg Operative Site vancomycin (VANCOCIN) injection PRN, Starting on Hanh 03/19/19 at 1111, Until Hanh 03/19/19 at 1151, Intra-op $ Given 03/19/2019 11:11 AM CDT 500 mg Operative Site documented in this encounter Active and Recently Administered Medications Times are shown in CDT. Scheduled Medication Order 03/17/2019 03/18/2019 03/19/2019 acetaminophen (TYLENOL) tablet 1,000 mg (COMPLETED) 1,000 mg, Oral, ONCE, 1 dose, On Hanh 03/19/19 at 0845, Pre-op 0853 ($ Given - Prov ider: Micheline Niño RN) ceFAZolin (ANCEF) 2,000 mg in 50 ml IVPB (COMPLETED) 2,000 mg (2 g), at 100 mL/hr, Intravenous, PRE-OP ONCE, 1 dose, On Hanh 03/19/19 at 0845, Indication for anti-infective therapy: Surgical prophylaxis 1024 ($ Given - Prov ider: DANII Bradley) lidocaine (XYLOCAINE MPF) 1 % injection [...] Moderate Pain, 5 doses, Starting on Hanh 19 at 1149, Until Hanh 919 at 1520, Maximum total of 5 doses If patient reaches max total dose, please consult anesthesiologist prior to further administration of pain meds. Hold pain meds if there are signs of hypoventilation., PACU HYDROmorphone (DILAUDID) injection 0.5 mg 0.5 mg, Intravenous, EVERY 5 MIN PRN, Severe Pain, 4 doses, Starting on Hanh 919 at 1149, Until Hanh 919 at 1520, Maximum total of 4 doses [...] 03/19/19 at 1105, Until Hanh 9 at 1105, Intra-op 1105 ($ New Bag/Syri nge - Provider: Cielo Alexander MD - Comment: Mixed with DEPO-Medrol) vancomycin (VANCOCIN) injection (CANCELED) PRN, Starting on Hanh 03/19/19 at 1111, Until Hanh 919 at 1151, Intra-op 1111 ($ Given - Prov ider: Cielo Alexander MD) documented in this encounter Care Teams Clinical Courier Relationship Specialty Start Date End Date Salinas Mari MD [address] [address] PCP - General Internal Medicine 03/02/19 documented as of this encounter
--- OUTSIDE RECORDS SUMMARY | 2024-07-10 15:35 | XMS_ITS | Encounter Summary ---
Author Organization [facility] Address [facility] [facility] [place] [address] Care Team Providers Care Coil Inspector Name Role Phone Unavailable Primary Care Provider Unavailabl e Reason for Visit * Reason Comments Establish Care Lumbar Pain Encounter Details Date Type Department Care Team (Late st Contact Info) Description 02/09/2019 2:30 PM CDT Office Visit [facility] Neurosurgery [address] [place] [address] Rui Desouza MD [address] [place] [address] Lumbar radicular pain (Primary Dx) Social History Tobacco Use Types [...] Sign Reading Time Taken Comments Blood Pressure 135/97 02/09/2019 2:05 PM CDT Pulse 121 02/09/2019 2:05 PM CDT Temperature - - Respiratory Rate - - Oxygen Saturation - - Inhaled Oxygen Concentration - - Weight 104.3 kg (230 lb) 02/09/2019 2:05 PM CDT Height 182.9 cm (6') 02/09/2019 2:05 PM CDT Body Mass Index 31.19 02/09/2019 2:05 PM CDT documented in this encounter Patient Instructions * Patient Instructions* Subha Corcoran APRN-CNP - 02/09/2019 2:27 PM CDT Imaging and tests results discussed as well as indication, risks, and benefits of surgical intervention as treatment for you leg and back pain (left L5-S1 microdiscectomy). If you decide to proceed with surgery someone from the neurosurgery department with call you with surgery date and time as well as pre operative instructions and testing. For any questions please call Abril [phone] documented in this encounter Progress Notes * Rui Desouza MD - 02/09/2019 10:43 PM CDT NAME: SHANE MCKEON : 1980 AGE: 38 PROVIDER: Rui Desouza MD SEX: M DATE: 02/09/2019 I had the pleasure of seeing Mr. [...] denies any major chronic axial back pain. Past Medical History: Diagnosis Date ??? Lumbar pain Past Surgical History: Procedure Laterality Date ??? Hernia Repair No family history on file. Social History Social History ??? Marital status: Unknown Spouse name: N/A ??? Number of children: N/A ??? Years of education: N/A Occupational History ??? Not on file. Social History Main Topics ??? Smoking status: Former Smoker Quit date: 2017 ??? Smokeless tobacco: Never Used ??? Alcohol use No ??? Drug use: No ??? Sexual activity: Not on file Other Topics Concern ??? Not on file Social History Narrative ??? No narrative on file Current Medications ALPRAZolam (XANAX) 0.5 MG tablet PHYSICAL EXAMINATION: The patient seems to be [...] reflexes are normal in the upper limbs. REVIEW OF DIAGNOSTIC STUDIES: The patient had [...] recess stenosis is only mild in nature. MEDICAL DECISION MAKING: I explained to the patient that he presents with clear symptoms of left S0chxjhjjyojbsp in the setting of a left L5-S1 [...] He has no further questions or concerns. Thanks for allowing us to participate in the care of your patient. [id number] Doc ID: [id number] Voice Job ID: [id number] documented in this encounter Plan of Treatment Not on file documented as of this encounter Visit Diagnoses Diagnosis Lumbar radicular pain- Primary Thoracic or lumbosacral neuritis or radiculitis, unspecified documented in this encounter
--- OUTSIDE RECORDS SUMMARY | 2024-07-10 15:36 | XMS_ITS | Clinical Summary ---
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
--- OUTSIDE RECORDS SUMMARY | 2024-07-10 15:36 | XMS_ITS | Continuity of Care Document ---
Author Organization [facility] Address [address] [place] [address] [place] [address] Phone Care Team Providers Care Nurse Coordinator Name Role Phone [facility] Unavailable Unavail able Jayant Ritter Unavailable Unavailable Procedures Procedure Date SV Poly Carb Sph +/- 7.12 To +/- 20 D De Frames Deluxe Tax - Medical Advance Directives Directive Yes / No Effective Date File Name No Information Encounters Encounter Description Practice Location Reason(s) For Visit Diagnoses Date Provider Providers Copied on Encounter [facility], [address] [place] [address] [address], [place], [place], [id number], [place] tel:[phone] [address] [facility] No Information [facility] [address] [facility], [facility] [address], [place], [place], [id number] , [place]. tel:[phone] Referring Provider: Patrick Mandel, [address] [place], [place] [address], [place], [address]. tel:[phone] luna Provider: Jayant Ritter, [address] [facility] [address], [place], [address]. tel:[phone] Family History Family Member Type Diagnosis Age At Onset No Information Payers Payer name Insurance type Covered democrat ID Authoriza tion(s) No Information Social History Type Description Quantity Date Captured Comments Sex Male Smoking Status No Information Chief Complaint And Reason For Visit No Information Reason For Referral Reason For Referral No Information History Of Present Illness Encounter Date Complaint History Of Prese nt Illness No Information Functional Status Date Functional Assessmen t No Information Instructions Date Instruction Additional Infor mation No Information Assessments Type Assessment Date No Information Patient Care Teams Name Effective Dates (start - stop) Status Members No Information
--- OUTSIDE RECORDS SUMMARY | 2024-07-10 15:40 | XMS_ITS | Continuity of Care Document ---
Author Organization [facility] Address [address] [place] [address] [place] [address] Phone Care Team Providers Care Documentation Nurse Name Role Phone [facility] Unavailable Unavail able Jayant Ritter Unavailable Unavailable Procedures Procedure Date SV Poly Carb Sph +/- 7.12 To +/- 20 D De Frames Deluxe Tax - Medical Advance Directives Directive Yes / No Effective Date File Name No Information Encounters Encounter Description Practice Location Reason(s) For Visit Diagnoses Date Provider Providers Copied on Encounter [facility], [address] [place] [address] [address], [place], [place], [id number], [place] tel:[phone] [address] [facility] No Information [facility] [address] [facility], [facility] [address], [place], [place], [id number] , [place]. tel:[phone] Referring Provider: Patrick Mandel, [address] [place], [place] [address], [place], [address]. tel:[phone] luna Provider: Jayant Ritter, [address] [facility], [place], [address]. tel:[phone] Family History Family Member Type Diagnosis Age At Onset No Information Payers Payer name Insurance type Covered libertarian ID Authoriza tion(s) No Information Social History [...]
== END 2024-07-03 08:54 | disposition home or self-care (01) ==
PROVIDERS: Emergency Provider Nurse Practitioner Family; PCP Emergency Medicine
DX: R11.2 Nausea with vomiting, unspecified (principal); E78.5 Hyperlipidemia, unspecified; Z87.891 Personal history of nicotine dependence; Z20.822 Contact with and (suspected) exposure to COVID-19
CPT/HCPCS: 87426; 87804; 99213; G0463